=== PATIENT | male | born 1960 ===

== ENCOUNTER 2023-06-11 06:16 | Emergency (ER) | payer MEDICARE, OTHER ==
--- NOTE | 2023-06-11 06:50 | ED ---
Altered Mental Status HPI - General Chief Complaint: Altered Mental Status Stated Complaint: Confusion Time Seen by Provider: 06/11/23 06:48 Source: patient, EMS, RN notes reviewed Mode of arrival: EMS Limitations: no limitations - History of Present Illness Initial Comments: 62-year-old male presented to the ER via EMS from [facility] f or evaluation of altered mental status. EMS reports staff at [facility] report they found patient wandering the halls this morning and was confused. They state he has no known past medical history except brain tumors. Patient does not take medications regularly. He denies any current complaints including headache, double blurry vision, cough, congestion, chest pain, shortness of breath, abdominal pain, urinary complaints or peripheral edema. Patient is unaware what year it is and is unsure who the president is. Patient does know he is in a hospital in [place]. Upon speaking with family patient has a past medical history significant for Alzheimer's. Family states he frequently wanders and has difficulty sleeping. - Related Data Previous Rx's Medication Instructions Recorded Azithromycin [Zithromax Z Pack] 0 tab PO DIRECTED #6 tab 06/11/23 Allergies Allergy/AdvReac Type Severity Reaction Status Date / Time No Known Allergies Allergy Verified 06/11/23 06:35 Review of Systems ROS Statement: Those systems with pertinent positive or pertinent negative responses have been documented in the HPI. ROS Other: All systems not noted in ROS Statement are negative. General Exam Limitations: no limitations General appearance: alert, in no apparent distress Head exam: Present: atraumatic, normocephalic, normal inspection Eye exam: Present: normal appearance, PERRL, EOMI. Absent: scleral icterus, conjunctival injection, periorbital swelling Respiratory exam: Present: normal lung sounds bilaterally. Absent: respiratory distress, wheezes, rales, rhonchi, stridor Cardiovascular Exam: Present: regular rate, normal rhythm, normal heart sounds. Absent: systolic murmur, diastolic murmur, rubs, gallop, clicks GI/Abdominal exam: Present: soft, normal bowel sounds. Absent: distended, tenderness, guarding, rebound, rigid Neurological exam: Present: alert Psychiatric exam: Present: normal affect, normal mood Skin exam: Present: warm, dry, intact, normal color. Absent: rash Course Vital Signs 06/11/23 06/11/23 06/11/23 06:18 07:24 07:45 Temperature 98.0 F 97.9 F Pulse Rate 82 74 Respiratory 18 17 Rate Blood Pressure 155/98 145/94 O2 Sat by Pulse 99 100 Oximetry 06/11/23 06/11/23 08:05 09:03 Temperature 98.0 F Pulse Rate 75 84 Respiratory 16 17 Rate Blood Pressure 142/95 151/99 O2 Sat by Pulse 99 99 Oximetry Medical Decision Making - Medical Decision Making Was pt. sent in by a medical professional or institution (, PA, LAND ECONOMIST, urgent care, hospital, or fdc...) When possible be specific @ -No Did you speak to anyone other than the patient for history (EMS, parent, family, police, friend...)? What history was obtained from this source @ -Brother providing past medical history. Did you review nursing and triage notes (agree or disagree)? Why? @ -I reviewed and agree with nursing and triage notes Were old charts reviewed (outside hosp., previous admission, EMS record, old EKG, old radiological studies, urgent care reports/EKG's, fdc records)? Report findings @ -No old charts were reviewed Differential Diagnosis (chest pain, altered mental status, abdominal pain women, abdominal pain men, vaginal bleeding, weakness, fever, dyspnea, syncope, hea dache, dizziness, GI bleed, back pain, seizure, CVA, palpatations, mental health, musculoskeletal)? @ -Differential Altered Mental Status:Hypoglycemia, DKA, hypercapnia, ETOH, overdose, CO poisoning, trauma, myxedema coma, HTN encephalopathy, infection, encephalitis, psychosis, intercranial hemorrhage, hepatic encephalopathy, meningitis, CVA, this is not meant to be an all-inclusive list EKG interpreted by me (3pts min.). @ -As above X-rays interpreted by me (1pt min.). @ -Chest x-ray significant for superior and inferior right hilar opacities as well as left hilar opacities possible pneumonia. CT interpreted by me (1pt min.). @ -CT brain negative for acute intracranial process. Mild ventriculomegaly. U/S interpreted by me (1pt. min.). @ -None done What testing was considered but not performed or refused? (CT, X-rays, U/S, labs)? Why? @ -None What meds were considered but not given or refused? Why? @ -None Did you discuss the management of the patient with other professionals (professionals i.e. , PA, LAND ECONOMIST, lab, RT, psych nurse, social science research assistant, shank cutter, teacher, correction officer penitentiary, information systems security manager)? Give summary @ -No Was smoking cessation discussed for >3mins.? @ -No Was critical care preformed (if so, how long)? @ -No Were there social determinants of health that impacted care today? How? (Homelessness, low income, unemployed, alcoholism, drug addiction, transportation, low edu. Level, literacy, decrease access to med. care, fci, rehab)? @ -Patient currently residing at [facility] Was there de-escalation of care discussed even if they declined (Discuss DNR or withdrawal of care, Hospice)? DNR status @ -No What co-morbidities impacted this encounter? (DM, HTN, Smoking, COPD, CAD, Cancer, CVA, ARF, Chemo, Hep., AIDS, mental health diagnosis, sleep apnea, mo rbid obesity)? @ -Alzheimer's Was patient admitted / discharged? Hospital course, mention meds given and route, prescriptions, significant lab abnormalities, going to OR and other pertinent info. @ -Discharge. 62-year-old male presented to the ER with a chief complaint of altered mental status. Patient arrived via EMS from [facility]. History and physical exam completed. Vitals stable. Patient no signs of acute distress and nontoxic-appearing. No acute neurological findings on exam. Labs obtained unremarkable. CT brain negative for acute process. Chest x-ray concerning of pneumonia. Patient will be started on azithromycin. Results discussed with patient, all questions answered. Patient discharged in stable condition back to [facility]. Multiple community resources given. Return parameters discussed. Patient discharged stable condition with follow-up to PCP. Patient verbally expressed understanding and agreement with care plan. Case discussed with ED attending, Dr. Nichols. Undiagnosed new problem with uncertain prognosis? @ -No Drug Therapy requiring intensive monitoring for toxicity (Heparin, Nitro, Insulin, Cardizem)? @ -No Were any procedures done? @ -No Diagnosis/symptom? @ -Pneumonia/dementia Acute, or Chronic, or Acute on Chronic? @ -Acute Uncomplicated (without systemic symptoms) or Complicated (systemic symptoms)? @ -Uncomplicated Side effects of treatment? @ -No Exacerbation, Progression, or Severe Exacerbation? @ -No Poses a threat to life or bodily function? How? (Chest pain, USA, OR, pneumonia, PE, COPD, DKA, ARF, appy, cholecystitis, CVA, Diverticulitis, Homicidal, Suicidal, threat to staff... and all critical care pts) @ -Possibly, pneumonia - Lab Data Result diagrams: 06/11/23 07:40 06/11/23 06:53 Lab Results 06/11/23 06/11/23 06/11/23 Range/Units 06:53 06:53 07:40 WBC 6.7 (3.8-10.6) k/uL RBC 4.79 (4.30-5.90) m/uL Hgb 14.5 (13.0-17.5) gm/dL Hct 41.7 (39.0-53.0) % MCV 87.1 (80.0-100.0) fL MCH 30.2 (25.0-35.0) pg MCHC 34.7 (31.0-37.0) g/dL RDW 12.7 (11.5-15.5) % Plt Count 157 (150-450) k/uL MPV 7.4 Sodium 139 (137-145) mmol/L Potassium 4.2 (3.5-5.1) mmol/L Chloride 105 (98-107) mmol/L Carbon Dioxide 27 (22-30) mmol/L Anion Gap 7 mmol/L BUN 17 (9-20) mg/dL Creatinine 1.16 (0.66-1.25) mg/dL Est GFR (CKD-EPI)AfAm 79 (>60 ml/min/1.73 sqM) Est GFR (CKD-EPI)NonAf 68 (>60 ml/min/1.73 sqM) Glucose 92 (74-99) mg/dL Calcium 9.6 (8.4-10.2) mg/dL Total Bilirubin 0.6 (0.2-1.3) mg/dL AST 25 (17-59) U/L ALT 19 (4-49) U/L Alkaline Phosphatase 62 (38-126) U/L Total Protein 7.3 (6.3-8.2) g/dL Albumin 4.3 (3.5-5.0) g/dL Urine Color Urine Appearance (Clear) Urine pH (5.0-8.0) Ur Specific [place] (1.001-1.035) Urine Protein (Negative) Urine Glucose (UA) (Negative) Urine Ketones (Negative) Urine Blood (Negative) Urine Nitrite (Negative) Urine Bilirubin (Negative) Urine Urobilinogen (<2.0) mg/dL Ur Leukocyte Esterase (Negative) Urine Opiates Screen (NotDetected) Ur Oxycodone Screen (NotDetected) Urine Methadone Screen (NotDetected) Ur Barbiturates Screen (NotDetected) U Tricyclic Antidepress (NotDetected) Ur Phencyclidine Scrn (NotDetected) Ur Amphetamines Screen (NotDetected) U Methamphetamines Scrn (NotDetected) U Benzodiazepines Scrn (NotDetected) Urine Cocaine Screen (NotDetected) U Marijuana (THC) Screen (NotDetected) Serum Alcohol <10 mg/dL Influenza Type A (PCR) Not Detected (Not Detectd) Influenza Type B (PCR) Not Detected (Not Detectd) RSV (PCR) Not Detected (Not Detectd) SARS-CoV-2 (PCR) Not Detected (Not Detectd) 06/11/23 Range/Units 07:40 WBC (3.8-10.6) k/uL RBC (4.30-5.90) m/uL Hgb (13.0-17.5) gm/dL Hct (39.0-53.0) % MCV (80.0-100.0) fL MCH (25.0-35.0) pg MCHC (31.0-37.0) g/dL RDW (11.5-15.5) % Plt Count (150-450) k/uL MPV Sodium (137-145) mmol/L Potassium (3.5-5.1) mmol/L Chloride (98-107) mmol/L Carbon Dioxide (22-30) mmol/L Anion Gap mmol/L BUN (9-20) mg/dL Creatinine (0.66-1.25) mg/dL Est GFR (CKD-EPI)AfAm (>60 ml/min/1.73 sqM) Est GFR (CKD-EPI)NonAf (>60 ml/min/1.73 sqM) Glucose (74-99) mg/dL Calcium (8.4-10.2) mg/dL Total Bilirubin (0.2-1.3) mg/dL AST (17-59) U/L ALT (4-49) U/L Alkaline Phosphatase (38-126) U/L Total Protein (6.3-8.2) g/dL Albumin (3.5-5.0) g/dL Urine Color Colorless Urine Appearance Clear (Clear) Urine pH 7.0 (5.0-8.0) Ur Specific [place] 1.010 (1.001-1.035) Urine Protein Negative (Negative) Urine Glucose (UA) Negative (Negative) Urine Ketones Negative (Negative) Urine Blood Negative (Negative) Urine Nitrite Negative (Negative) Urine Bilirubin Negative (Negative) Urine Urobilinogen <2.0 (<2.0) mg/dL Ur Leukocyte Esterase Negative (Negative) Urine Opiates Screen Not Detected (NotDetected) Ur Oxycodone Screen Not Detected (NotDetected) Urine Methadone Screen Not Detected (NotDetected) Ur Barbiturates Screen Not Detected (NotDetected) U Tricyclic Antidepress Not Detected (NotDetected) Ur Phencyclidine Scrn Not Detected (NotDetected) Ur Amphetamines Screen Not Detected (NotDetected) U Methamphetamines Scrn Not Detected (NotDetected) U Benzodiazepines Scrn Not Detected (NotDetected) Urine Cocaine Screen Not Detected (NotDetected) U Marijuana (THC) Screen Not Detected (NotDetected) Serum Alcohol mg/dL Influenza Type A (PCR) (Not Detectd) Influenza Type B (PCR) (Not Detectd) RSV (PCR) (Not Detectd) SARS-CoV-2 (PCR) (Not Detectd) - EKG Data -: EKG Interpreted by Md EKG Comments: EKG taken at 6: 21 showing a sinus rhythm with no acute ST segment or T wave abnormalities. Ventricular rate 81, MD interval 191, QRS duration 97, QT/QTc 360/397. - Radiology Data Radiology results: report reviewed, image reviewed Disposition Clinical Impression: Pneumonia, Dementia Disposition: HOME SELF-CARE Condition: Stable Instructions (If sedation given, give patient instructions): Pneumonia (ED) Additional Instructions: Follow-up with PCP. Complete full course of antibiotics. Return to the ER for any new or worsening symptoms. Prescriptions: Azithromycin [Zithromax Z Pack] 0 tab PO DIRECTED #6 tab Is patient prescribed a controlled substance at d/c from ED?: No Referrals: None,Stated [Primary Care Provider] - 1-2 days Forms: Personal Silver Wrapper, Community Resources, Assisted Living Facilities, Area PCPs Time of Disposition: 09:20
--- NOTE | 2023-06-11 07:51 | CT ---
EXAMINATION TYPE: CT brain wo con DATE OF EXAM: 06/11/2023 COMPARISON: None HISTORY: 62-year-old male confusion, ams TECHNIQUE: Examination was done in axial plane without intravenous contrast. Coronal and sagittal r econstructions performed. CT DLP: 1095.4 mGycm Automated exposure control for dose reduction was used. FINDINGS: There is no evidence of acute intracranial hemorrhage, acute ischemic changes, mass, mass-effect, or extra-axial fluid collection. There is no effacement of cerebral sulci or basal subarachnoid cister ns. Mild ventriculomegaly; Myron's ratio calculated at 0.34. There is no midline shift. Collins-white ma tter distinction is preserved. Paranasal sinuses and mastoid air cells are well pneumatized. Scattered trace thickening of mucosa. O rbits and globes are intact. IMPRESSION: No acute intracranial abnormality seen. Mild ventriculomegaly may relate to central cerebral atrophy. Correlate to exclude a component of NPH.
--- NOTE | 2023-06-11 07:54 | XR ---
EXAMINATION TYPE: XR chest 2V DATE OF EXAM: 06/11/2023 COMPARISON: None HISTORY: 62-year-old male, confusion, altered mental status TECHNIQUE: AP and lateral views FINDINGS: Heart normal size. Dextroscoliosis lower thoracic spine. Mild hyperinflation. Focal right suprahilar opacity, right infrahilar nodularity and left perihilar opacity. Otherwise, no consolidation or pleur al effusion. IMPRESSION: 1. Superior and inferior right hilar opacities as well as left hilar opacity. Additional left perihi lar opacity as well. Densities may reflect prominent summation artifact, underlying pulmonary arteri al hypertension, abnormal lymphadenopathy, or abnormal pulmonary nodules. Further evaluation as clini eddie indicated. 2. COPD. Otherwise, no other acute process seen.
[2023-06-11 08:22] LABS: ALT 19 U/L (4-49); AST 25 U/L (17-59); African American GFR (CKD) 79 (>60 ml/min/1.73 sqM); Albumin 4.3 g/dL (3.5-5.0); Alcohol <10 mg/dL; Alkaline Phosphatase 62 U/L (38-126); Anion Gap 7 mmol/L; Blood Urea Nitrogen 17 mg/dL (9-20); Calcium 9.6 mg/dL (8.4-10.2); Carbon Dioxide 27 mmol/L (22-30); Chloride 105 mmol/L (98-107); Glucose 92 mg/dL (74-99); Non-African American GFR(CKD) 68 (>60 ml/min/1.73 sqM); Potassium 4.2 mmol/L (3.5-5.1); Sodium 139 mmol/L (137-145); Total Bilirubin 0.6 mg/dL (0.2-1.3); Total Protein 7.3 g/dL (6.3-8.2)
[2023-06-11 08:25] LABS: Appearance,Urine Clear (Clear); Bilirubin,Urine Negative (Negative); Blood,Urine Negative (Negative); Color,Urine Colorless; Glucose,Urine (UA) Negative (Negative); Ketones,Urine Negative (Negative); Leukocyte Esterase,Urine Negative (Negative); Nitrite,Urine Negative (Negative); Protein,Urine Negative (Negative); Urobilinogen,Urine <2.0 mg/dL (<2.0)
[2023-06-11 08:42] LABS: HCT 41.7 % (39.0-53.0); HGB 14.5 gm/dL (13.0-17.5); MCH 30.2 pg (25.0-35.0); MCHC 34.7 g/dL (31.0-37.0); MCV 87.1 fL (80.0-100.0); Mean Platelet Volume 7.4; Platelet Count 157 k/uL (150-450); RBC 4.79 m/uL (4.30-5.90); RDW 12.7 % (11.5-15.5); WBC 6.7 k/uL (3.8-10.6)
[2023-06-11 09:04] VITALS: TEMP 98
[2023-06-11 09:05] VITALS: BP 151/99; PULSE 84; RESP 17
[2023-06-11 09:07] LABS: Amphetamine Screen,Urine Not Detected (NotDetected); Barbiturate Screen,Urine Not Detected (NotDetected); Benzodiazepines Screen,Urine Not Detected (NotDetected); Cocaine Screen,Urine Not Detected (NotDetected); Methadone Screen, Urine Not Detected (NotDetected); Opiate Screen,Urine Not Detected (NotDetected); Oxycodone Screen, Urine Not Detected (NotDetected); Phencyclidine Screen,Urine Not Detected (NotDetected); Tricyclic Antidepressant,Urine Not Detected (NotDetected); Urn Cannabinoid Scrn Not Detected (NotDetected)
[2023-06-11 09:45] LABS: Basophils # (M) 0.07 k/uL (0-0.2); Lymphocytes # (M) 1.81 k/uL (1.0-4.8); Monocytes # (M) 0.47 k/uL (0-1.0); Neutrophils # (M) 4.36 k/uL (1.3-7.7); Neutrophils % (M) 65 %; Nucleated Red Blood Cells 0 /100 WBC (0-0); Total Cells Counted 100
[2023-06-11 09:46] LABS: RBC Morphology Normal
== END 2023-06-11 09:58 | disposition home or self-care (01) ==
LOC: EC 06:16
DX: J18.9 Pneumonia, unspecified organism (principal); G30.9 Alzheimer's disease, unspecified; F02.818 Dementia in other diseases classified elsewhere, unspecified severity, with other behavioral disturbance; G93.89 Other specified disorders of brain; Z11.52 Encounter for screening for COVID-19
CPT/HCPCS: 36415; 93005; 80053; 85025; 81003; 80306; 87636; 71046; 70450; 99285; G0480; 80320

== ENCOUNTER 2024-04-26 09:39 | Observation (INO) | payer OTHER, MEDICARE ==
[2024-04-26] MEDS: SODIUM CHLORIDE 0.9% 1,000 ML IV STA ×2 (10:12→16:43)
[2024-04-26 10:14] LABS: Basophils % (A) 0 %; Eosinophils # (A) 0.1 k/uL (0-0.7); Eosinophils % (A) 1 %; HGB 12.6 gm/dL (13.0-17.5); Lymphocytes # (A) 0.7 k/uL (1.0-4.8); Lymphocytes % (A) 6 %; MCH 27.7 pg (25.0-35.0); MCHC 32.3 g/dL (31.0-37.0); MCV 85.7 fL (80.0-100.0); Mean Platelet Volume 6.8; Monocytes # (A) 0.6 k/uL (0-1.0); Monocytes % (A) 5 %; Neutrophils % (A) 87 %; Platelet Count 192 k/uL (150-450); RBC 4.54 m/uL (4.30-5.90); RDW 13.2 % (11.5-15.5); WBC 11.5 k/uL (3.8-10.6)
--- NOTE | 2024-04-26 10:14 | ED ---
General Adult HPI - General Chief complaint: Syncope Stated complaint: Syncope Time Seen by Provider: 04/26/24 09:39 Source: patient, EMS, RN notes reviewed, old records reviewed Mode of arrival: EMS Limitations: no limitations - History of Present Illness Initial comments: Patient is a 63-year-old male with past medical history markable for dementia who presents emergency department from his assisted living facility for syncope episode. Patient apparently was standing at his sink and suffered a syncopal episode. Presented from [facility] living. Was a fall from standing. Not on blood thinners. Unknown if hit his head. Baseline is ANO x 2-3 and patient seems to be at baseline. 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 I did discuss with patient's brother who states that he was recently started on a new medication for his combativeness which could be contributory to his current symptoms. Patient denies any acute complaints. Presents for further evaluation at this time. Denies chest pain or abdominal pain. Denies nausea or vomiting. Denies any back pain. No obvious injuries. Moving all 4 extremities. Patient overall is a poor historian. - Related Data Home Medications Medication Instructions Recorded Confirmed Sertraline HCl [Zoloft] 50 mg PO HS@199904/26/24 04/26/24 Allergies Allergy/AdvReac Type Severity Reaction Status Date / Time No Known Allergies Allergy Verified 04/26/24 13:06 Review of Systems ROS Statement: Those systems with pertinent positive or pertinent negative responses have been documented in the HPI. Review of Systems: CONST: Denies fever EYES: Denies blurry vision ENT: Denies nasal congestion C/V: Denies Chest pain RESP: Denies shortness of breath GI: Denies abdominal pain : Denies dysuria SKIN: Denies rash. MSK: Denies joint pain. NEURO: Denies headache ROS Other: All systems not noted in ROS Statement are negative. Past Medical History Past Medical History: Dementia, Hypertension History of Any Multi-Drug Resistant Organisms: None Reported Past Surgical History: No Surgical Hx Reported Smoking Status: Never smoker Past Alcohol Use History: None Reported Past Drug Use History: None Reported General Exam - General Exam Comments Initial Comments: General: Appears in no acute distress. HEAD: Normal with no signs of head trauma. Negative Maurice sign. Negative raccoon eyes. EYES: PERRLA, EOMI, conjunctiva normal, no discharge. Pupils are 3 mm and equal bilaterally. ENT: Hearing grossly intact, normal oropharynx. RESPIRATORY: Clear breath sounds bilaterally. No wheezes, rales, or rhonchi. C/V: Regular rate and rhythm. S1 and S2 auscultated, no edema, peripheral pulses 2+ and intact throughout ABD: Abd is soft, nontender, nondistended EXT: Normal range of motion, no obvious deformity. No spinal tenderness to palpation. Pelvis is stable. SKIN: No rashes or lesions observed on exposed skin. NEURO: Alert and oriented x 2-3. No focal deficits. GCS of 15. Limitations: no limitations Course Vital Signs 04/26/24 09:41 Temperature 98 F Pulse Rate 81 Respiratory 18 Rate Blood Pressure 98/73 O2 Sat by Pulse 100 Oximetry Medical Decision Making - Medical Decision Making Was pt. sent in by a medical professional or institution (, PA, INSURANCE REPRESENTATIVE, urgent care, hospital, or fpc...) When possible be specific @ -Presents from [facility] for further evaluation Did you speak to anyone other than the patient for history (EMS, parent, family, police, friend...)? What history was obtained from this source @ -Spoke with patient's brother who provided patient's history. Did you review nursing and triage notes (agree or disagree)? Why? @ -I reviewed and agree with nursing and triage notes Were old charts reviewed (outside hosp., previous admission, EMS record, old EKG, old radiological studies, urgent care reports/EKG's, fpc records)? Report findings @ -No old charts were reviewed Differential Diagnosis (chest pain, altered mental status, abdominal pain women, abdominal pain men, vaginal bleeding, weakness, fever, dyspnea, syncope, headache, dizziness, GI bleed, back pain, seizure, CVA, palpatations, mental health, musculoskeletal)? @ -Differential Syncope: Valvular disease, hypertrophic cardiomyopathy, pulmonary embolism, tamponade, tachycardia, bradycardia, [place], hypovolemia, hemorrhage, dissection, anemia, intracranial hemorrhage, seizure, hypoglycemia, carbon monoxide poisoning, this is not meant to be an all-inclusive list. EKG interpreted by me (3pts min.). @ -As above X-rays interpreted by me (1pt min.). @ -Chest x-ray reveals possible hilar masses or adenopathy with possible right sided lung mass. CT interpreted by me (1pt min.). @ -CT brain reveals possible cerebellar mass versus vascular injury. Radiology concern for malignancy and recommend MRI. U/S interpreted by me (1pt. min.). @ -None done What testing was considered but not performed or refused? (CT, X-rays, U/S, labs)? Why? @ -None What meds were considered but not given or refused? Why? @ -None Did you discuss the management of the patient with other professionals (professionals i.e. DrSis, PA, INSURANCE REPRESENTATIVE, lab, RT, psych nurse, social work supervisor, broke beater operator, teacher, tactical/mobile watch officer, oil field caser)? Give summary @ -Discussed with Dr. Bernal of neurology who agreed with plan and asked that I order an EEG as well as MRI. Spoke with admitting provider, Dr. Tam who accepted the admission. Was smoking cessation discussed for >3mins.? @ -No Was critical care preformed (if so, how long)? @ -No Were there social determinants of health that impacted care today? How? (Homelessness, low income, unemployed, alcoholism, drug addiction, transportation, low edu. Level, literacy, decrease access to med. care, nursing home, rehab)? @ -No Was there de-escalation of care discussed even if they declined (Discuss DNR or withdrawal of care, Hospice)? DNR status @ -No What co-morbidities impacted this encounter? (DM, HTN, Smoking, COPD, CAD, Cancer, CVA, ARF, Chemo, Hep., AIDS, mental health diagnosis, sleep apnea, morbid obesity)? @ -Dementia Was patient admitted / discharged? Hospital course, mention meds given and route, prescriptions, significant lab abnormalities, going to OR and other pertinent info. @ -Based on patient's presentation and physical exam, presents to the emergency department for syncopal episode that is assisted living facility. Patient currently has no acute complaints. He has dementia. Is mostly cooperative. Discussed with patient's brother and they in agreement with plan for workup. Patient will be given IV fluids. Patient's laboratory studies remarkable for mild leukocytosis of 11. Slightly increased creatinine of 1.3. Viral swabs negative. Patient's imaging concerning for possible malignancy in the lung as well as malignancy in the brain. No obvious traumatic injury. After the patient as well as his brother who is medical decision-maker. His brother did confirm that the patient is DNR. We discussed findings. Patient will be admitted at this time. They were in agreement this plan. Neurology will be consulted for the head CT findings and Dr. Bernal recommended an EEG and MRI. I spoke with the admitting provider, Dr. Tam who accepted the admission. Undiagnosed new problem with uncertain prognosis? @ -No Drug Therapy requiring intensive monitoring for toxicity (Heparin, Nitro, Insulin, Cardizem)? @ -No Were any procedures done? @ -No Diagnosis/symptom? @ -Syncope, fall, dementia, possible brain malignancy, possible lung malignancy. All in the setting of Alzheimer's dementia. Acute, or Chronic, or Acute on Chronic? @ -Acute Uncomplicated (without systemic symptoms) or Complicated (systemic symptoms)? @ -complicated Side effects of treatment? @ -None Exacerbation, Progression, or Severe Exacerbation] @ -No Poses a threat to life or bodily function? @ -Potentially, yes - Lab Data Result diagrams: 04/26/24 09:41 04/26/24 09:41 Lab Results 04/26/24 04/26/24 04/26/24 Range/Units 09:41 09:41 09:41 WBC 11.5 H (3.8-10.6) k/uL RBC 4.54 (4.30-5.90) m/uL Hgb 12.6 L (13.0-17.5) gm/dL Hct 39.0 (39.0-53.0) % MCV 85.7 (80.0-100.0) fL MCH 27.7 (25.0-35.0) pg MCHC 32.3 (31.0-37.0) g/dL RDW 13.2 (11.5-15.5) % Plt Count 192 (150-450) k/uL MPV 6.8 Neutrophils % 87 % Lymphocytes % 6 % Monocytes % 5 % Eosinophils % 1 % Basophils % 0 % Neutrophils # 10.0 H (1.3-7.7) k/uL Lymphocytes # 0.7 L (1.0-4.8) k/uL Monocytes # 0.6 (0-1.0) k/uL Eosinophils # 0.1 (0-0.7) k/uL Basophils # 0.0 (0-0.2) k/uL PT 12.0 (10.0-12.5) sec INR 1.1 (<1.2) APTT 23.7 (22.0-30.0) sec Sodium 135 L (137-145) mmol/L Potassium 5.0 (3.5-5.1) mmol/L Chloride 99 (98-107) mmol/L Carbon Dioxide 30 (22-30) mmol/L Anion Gap 6 mmol/L BUN 20 (9-20) mg/dL Creatinine 1.36 H (0.66-1.25) mg/dL Est GFR (CKD-EPI)AfAm 64 (>60 ml/min/1.73 sqM) Est GFR (CKD-EPI)NonAf 55 (>60 ml/min/1.73 sqM) Glucose 208 H (74-99) mg/dL Calcium 9.7 (8.4-10.2) mg/dL Magnesium 2.0 (1.6-2.3) mg/dL Total Bilirubin 0.8 (0.2-1.3) mg/dL AST 28 (17-59) U/L ALT 17 (4-49) U/L Alkaline Phosphatase 69 (38-126) U/L Total Protein 6.8 (6.3-8.2) g/dL Albumin 3.9 (3.5-5.0) g/dL Influenza Type A (PCR) (Not Detectd) Influenza Type B (PCR) (Not Detectd) RSV (PCR) (Not Detectd) SARS-CoV-2 (PCR) (Not Detectd) 04/26/24 Range/Units 09:41 WBC (3.8-10.6) k/uL RBC (4.30-5.90) m/uL Hgb (13.0-17.5) gm/dL Hct (39.0-53.0) % MCV (80.0-100.0) fL MCH (25.0-35.0) pg MCHC (31.0-37.0) g/dL RDW (11.5-15.5) % Plt Count (150-450) k/uL MPV Neutrophils % % Lymphocytes % % Monocytes % % Eosinophils % % Basophils % % Neutrophils # (1.3-7.7) k/uL Lymphocytes # (1.0-4.8) k/uL Monocytes # (0-1.0) k/uL Eosinophils # (0-0.7) k/uL Basophils # (0-0.2) k/uL PT (10.0-12.5) sec INR (<1.2) APTT (22.0-30.0) sec Sodium (137-145) mmol/L Potassium (3.5-5.1) mmol/L Chloride (98-107) mmol/L Carbon Dioxide (22-30) mmol/L Anion Gap mmol/L BUN (9-20) mg/dL Creatinine (0.66-1.25) mg/dL Est GFR (CKD-EPI)AfAm (>60 ml/min/1.73 sqM) Est GFR (CKD-EPI)NonAf (>60 ml/min/1.73 sqM) Glucose (74-99) mg/dL Calcium (8.4-10.2) mg/dL Magnesium (1.6-2.3) mg/dL Total Bilirubin (0.2-1.3) mg/dL AST (17-59) U/L ALT (4-49) U/L Alkaline Phosphatase (38-126) U/L Total Protein (6.3-8.2) g/dL Albumin (3.5-5.0) g/dL Influenza Type A (PCR) Not Detected (Not Detectd) Influenza Type B (PCR) Not Detected (Not Detectd) RSV (PCR) Not Detected (Not Detectd) SARS-CoV-2 (PCR) Not Detected (Not Detectd) - EKG Data -: EKG Interpreted by Me EKG Comments: 12-lead Electrocardiogram Interpretation Note EKG was reviewed and interpreted by myself. 12-lead ECG performed at 0950 is interpreted by me as revealing normal sinus rhythm at a rate of 78 beats per minute. Veyo is normal. AR interval is 168 ms, QRS duration is 91 ms, QTc is 398 ms.. There were no ST or T wave abnormalities to suggest myocardial ischemia or injury. R wave progression across the precordium was satisfactory. By my interpretation this EKG is non-diagnostic for acute ischemia. Disposition Clinical Impression: Syncope, Brain mass, Debility, Alzheimer dementia Narrative: possible lung malignancy Disposition: ADMITTED IP TO THIS HOSP Condition: Stable Time of Disposition: 11:25
[2024-04-26 10:26] LABS: INR 1.1 (<1.2); Partial Thromboplastin Time 23.7 sec (22.0-30.0)
[2024-04-26 10:29] LABS: ALT 17 U/L (4-49); AST 28 U/L (17-59); African American GFR (CKD) 64 (>60 ml/min/1.73 sqM); Albumin 3.9 g/dL (3.5-5.0); Alkaline Phosphatase 69 U/L (38-126); Anion Gap 6 mmol/L; Blood Urea Nitrogen 20 mg/dL (9-20); Calcium 9.7 mg/dL (8.4-10.2); Carbon Dioxide 30 mmol/L (22-30); Chloride 99 mmol/L (98-107); Glucose 208 mg/dL (74-99); Non-African American GFR(CKD) 55 (>60 ml/min/1.73 sqM); Sodium 135 mmol/L (137-145); Total Bilirubin 0.8 mg/dL (0.2-1.3); Total Protein 6.8 g/dL (6.3-8.2)
--- NOTE | 2024-04-26 10:39 | XR ---
EXAMINATION TYPE: XR chest 2V DATE OF EXAM: 04/26/2024 CLINICAL INDICATION: Male, 63 years old with history of syncope, TECHNIQUE: Frontal and lateral views of the chest are obtained. COMPARISON: Chest x-ray June 11, 2023 FINDINGS: The cardiac silhouette size is stable and within normal limits. More prominent rounded full ness in the bilateral hilar regions and medial right lung base. No pleural effusion or pneumothorax s een bilaterally. The osseous structures are intact. IMPRESSION: Possible new hilar masses and/or adenopathy and medial right lower lung mass. Advise CT f ollow-up to further evaluate. [facility], , 04/26/2024 10:36 AM
--- NOTE | 2024-04-26 10:47 | CT ---
EXAMINATION TYPE: CT brain wo con DATE OF EXAM: 04/26/2024 10:26 AM COMPARISON: 06/11/2023. CLINICAL INDICATION: Male, 63 years old with history of syncope, syncope TECHNIQUE: Brain: Axial CT images of the brain were obtained with coronal and sagittal reformats created and rev iewed. Contrast used: None. Oral contrast used: None. CT DLP: 1157.1 mGycm, Automated exposure control for dose reduction was used. FINDINGS: Brain: Extra-axial spaces: No abnormal extra-axial fluid collections. Ventricular system: Stable dilation of the ventricular system. Cerebral parenchyma: No acute intraparenchymal hemorrhage or mass effect. The merida-white junction is well differentiated. Cerebellum: New from 06/11/2023 left cerebral hemisphere cystic lesion which is fluid density at 9 Maximino nsfield units measuring 26 x 24 x 26 with some vasogenic edema. Mass effect: No evidence of midline shift. Intracranial vasculature: unremarkable Soft tissues: Normal. Calvarium/osseous structures: No depressed skull fracture. Paranasal sinuses and mastoid air cells: Mild scattered paranasal sinus disease. Visualized orbits: Orbital contents are intact. IMPRESSION: 1. New left cerebellar hemisphere fluid attenuating region from 06/11/2023. Further evaluation with M RI brain recommended with IV contrast, unclear if this represents a mass or vascular injury. Correlat e for history of malignancy. 2. Stable ventricular system dilation. [facility], , 04/26/2024 10:45 AM
[2024-04-26 10:49] LABS: Influenza A Not Detected (Not Detectd); Influenza B Not Detected (Not Detectd); RSV Not Detected (Not Detectd)
[2024-04-26] MEDS ORDERED: NALOXONE 0.4 MG/ML 1 ML VIAL IV PRN (11:22)
[2024-04-26] MEDS ORDERED: ONDANSETRON 4 MG/2 ML VIAL IVP PRN (11:22)
--- NOTE | 2024-04-26 12:47 | P.HPIM ---
History of Present Illness 63-year-old male was sent in here because of a syncopal episode patient lives in assisted living. Patient is found to have elevated serum creatinine 1.36 mild hyponatremia leukocytosis and low blood pressure patient does not take any medications at home patient appears to have dementia of Alzheimer's type and baseline is alert oriented x 2-3 patient does not answer any questions appropriately apparently patient was started on new medications for combativeness which they believe is contributing to her current current symptoms. Patient had a CT of the head which showed hypoattenuation in the cerebellar area concerning for fluid or mass because of which neurology was consulted and patient is undergoing brain MRI for that. REVIEW OF SYSTEMS: All other systems are negative except those mentioned in the HPI PHYSICAL EXAMINATION: GENERAL: The patient is alert and oriented x2, not in any acute distress. Well developed, well nourished. HEENT: Pupils are round and equally reacting to light. EOMI. No scleral icterus. No conjunctival pallor. Normocephalic, atraumatic. No pharyngeal erythema. No thyromegaly. CARDIOVASCULAR: S1 and S2 present. No murmurs, rubs, or gallops. PULMONARY: Chest is clear to auscultation, no wheezing or crackles. ABDOMEN: Soft, nontender, nondistended, normoactive bowel sounds. No palpable organomegaly. MUSCULOSKELETAL: No joint swelling or deformity. EXTREMITIES: No cyanosis, clubbing, or pedal edema. NEUROLOGICAL: Gross neurological examination did not reveal any focal deficits. Significant memory deficits SKIN: No rashes. Assessment and plan -Syncope probably secondary to dehydration from poor p.o. intake patient was started on IV fluids which we will continue will obtain orthostatic vitals. Will also obtain echocardiogram to rule out any aortic stenosis -Elevated blood sugars will obtain hemoglobin A1c -Leukocytosis reactive in nature -Hypoattenuation in the cerebellar area for which patient will undergo MRI neurology evaluated the patient -Dementia possibly dementia of Alzheimer's type expected to have some agitation episodes will use Seroquel for that avoid benzodiazepines, barbiturates, anticholinergic medications, opiates. DVT prophylaxis: Subcutaneous heparin Past Medical History Past Medical History: Dementia, Hypertension History of Any Multi-Drug Resistant Organisms: None Reported Past Surgical History: No Surgical Hx Reported Smoking Status: Never smoker Past Alcohol Use History: None Reported Past Drug Use History: None Reported Medications and Allergies Home Medications Medication Instructions Recorded Confirmed Type Azithromycin [Zithromax Z Pack] 0 tab PO DIRECTED #6 tab 06/11/23 Rx Azithromycin [Zithromax] 500 mg PO DAILY #5 tab 06/11/23 Rx Allergies Allergy/AdvReac Type Severity Reaction Status Date / Time No Known Allergies Allergy Verified 04/26/24 09:54 Physical Exam Vitals: Vital Signs Temp Pulse Resp BP Pulse Ox 04/26/24 09:41 98 F 81 18 98/73 100 Intake and Output 04/25/24 04/26/24 04/26/24 22:59 06:59 14:59 Other: Weight 74.843 kg Results CBC & Chem 7: 04/26/24 09:41 04/26/24 09:41 Labs: Abnormal Lab Results - Last 24 Hours (Table) 04/26/24 04/26/24 Range/Units 09:41 09:41 WBC 11.5 H (3.8-10.6) k/uL Hgb 12.6 L (13.0-17.5) gm/dL Neutrophils # 10.0 H (1.3-7.7) k/uL Lymphocytes # 0.7 L (1.0-4.8) k/uL Sodium 135 L (137-145) mmol/L Creatinine 1.36 H (0.66-1.25) mg/dL Glucose 208 H (74-99) mg/dL
[2024-04-26] MEDS: QUEtiapine 25 MG TAB PO PRN (14:32)
[2024-04-26] MEDS ORDERED: LORazepam 2 MG/ML INJ IV PRN (15:02)
--- NOTE | 2024-04-26 15:19 | P.CNNES ---
History of Present Illness Consult date: 04/26/24 Requesting physician: Robel Dobson Reason for Consult: ?brain mass History of Present Illness: This is a 63-year-old gentleman with a history of dementia that is progressive over the last 4 to 5 years who presents to the emergency department because of a syncopal spell. Patient brother is at bedside who provide the history. It seems that the patient was at his assisted living facility and it seems that he had a fall episode and according to his brothers the episode happened between around 8 to 9 AM. He does not recall having any warning signs. He is unable to provide much history. According to ED note it seems that the patient fell from standing and unknown if he hit his head. No history of seizure in the past. Seems at baseline he is oriented 2-3. Patient is not on any blood thinners. Seems the patient has progressive dementia over the last 4 to 5 years but he never was evaluated by a neurologist as an outpatient for an official diagnosis and never had the workup. Some of the workup during this hospital visit consisted of: I reviewed the lab workup. Creatinine is 1.36, sodium is 135, serum glucose is 2 8, calcium and magnesium as well as AST ALT are within the normal limits. CT of the head is reported as new left cerebellar hemisphere fluid attenuation region from 06/11/2023. Further evaluation with MRI recommended with IV contrast. Unclear if this represents a mass or vascular injury. I personally reviewed the CT and I agree there is no acute process. I do agree that the darian ent has questionable old vascular versus mass. There is no vasogenic edema noted. Review of Systems Limited. Past Medical History Past Medical History: Dementia, Hypertension History of Any Multi-Drug Resistant Organisms: None Reported Past Surgical History: No Surgical Hx Reported Smoking Status: Never smoker Past Alcohol Use History: None Reported Past Drug Use History: None Reported Medications and Allergies Home Medications Medication Instructions Recorded Confirmed Type Sertraline HCl [Zoloft] 50 mg PO HS@199904/26/24 04/26/24 History Allergies Allergy/AdvReac Type Severity Reaction Status Date / Time No Known Allergies Allergy Verified 04/26/24 13:06 Physical Examination - Vital Signs Vital Signs: Vital Signs Temp Pulse Resp BP Pulse Ox 04/26/24 09:41 98 F 81 18 98/73 100 Intake and Output 04/26/24 04/26/24 04/26/24 06:59 14:59 22:59 Other: Weight 74.843 kg General: Lying in bed and does not appear in acute distress. Neuro: Very limited because of cooperation. Patient is resistant on cooperating on examination. He is oriented to self. Language is very limited Pupils are round about 3 mm and reactive to light. No facial weakness. No dysarthria from limited language. Tongue is midline and move [id number] without difficulty and there is no tongue bites. Motor is able to lift up bilateral upper and lower extremity above gravity and appears equally. Normal tone and bulk Results - Laboratory Findings CBC and BMP: 04/26/24 09:41 04/26/24 09:41 Abnormal Lab Findings: Abnormal Labs 04/26/24 04/26/24 09:41 09:41 WBC 11.5 H Hgb 12.6 L Neutrophils # 10.0 H Lymphocytes # 0.7 L Sodium 135 L Creatinine 1.36 H Glucose 208 H Assessment and Plan Assessment: This is a 63-year-old gentleman with history of progressive dementia over the last for 5 years who presented from his assisted living facility for a fall in the morning. Fact that he had a syncopal spell. CT of the head shows concern for a vascular insult over the left cerebellar that seems old versus mass Syncopal spell unknown exact etiology: Unsure if due cerebellar lesion leading to seizure. New left cerebellar compared to the 05/2023 imaging rule out mass versus an old insult Underlying history of dementia that is progressive over the last for 5 years Plan: I spoke with the ED physician and recommended routine EEG as well as MRI of the brain with and without Will avoid any antiplatelet or or antiseizure medication until further evaluation is performed. The patient does not have any underlying seizure then recommend subacute 50 mg twice daily since it will help both with the mood as well as has antiseizure benefit. Keppra will avoid because of has mood side effects. Patient does have brain mass then recommend Oncology consultation. Will defer the rest of the medical management the primary other specialist The plan is discussed with patient's brothers who are at bedside and ED physician. Thank you for the consultation. Time with Patient: Greater than 30
--- NOTE | 2024-04-26 15:53 | MR ---
EXAMINATION TYPE: MR brain wo/w con DATE OF EXAM: 04/26/2024 3:44 PM COMPARISON: CT 04/26/2024, 427.4. CLINICAL INDICATION: Male, 63 years old with history of possible brain mass; TECHNIQUE: Multi planar, multi sequence imaging was performed through the brain including: T1, T2, In version recovery, susceptibility weighted imaging and gradient echo imaging and Diffusion weighted im aging. The patient was then given intravenous contrast and multi planar, T1 fat-saturation images wer e obtained. IV Contrast: 7 mL Gadobutrol FINDINGS: Cystic lesion in the left cerebellar hemisphere measuring 24 x 21 x 29 mm with surrounding vasogenic edema demonstrates some posterior enhancement, enhancement measuring at least 5 mm x 22 mm. The merida-white junctions, ventricular system, basal cisterns appear unremarkable. Diffusion-weighted imaging shows no evidence of restricted diffusion to suggest acute/subacute infarct. Intracranial ar terial flow voids are maintained. Midline structures show no abnormality. Scattered foci of high T2 s ignal intensity are seen within the periventricular white matter. The susceptibility weighted images do not reveal any evidence for micro-hemorrhage. The bone marrow signal is within normal limits. Paranasal sinuses and mastoid air cells: No significant paranasal sinus disease. Visualized orbits: Orbital contents are intact. IMPRESSION: 1. Cystic mass in the left cerebellar hemisphere with posterior peripheral enhancement along the angeli in and is new from CT 06/11/2023 and concerning for metastatic disease. 2. No evidence of acute/subacute infarct. 3. Nonspecific white matter changes, likely related to small vessel ischemic disease. [facility], , 04/26/2024 3:51 PM
[2024-04-26] MEDS: HEPARIN SODIUM,PORCINE 5,000 UNIT/ML 1 ML VIAL SQ SCH (21:20)
--- NOTE | 2024-04-26 22:30 | EEG ---
ELECTROENCEPHALOGRAM REPORT CLINICAL HISTORY: This is a 63-year-old gentleman with history of dementia, who had a syncopal episode. The video EEG is obtained to evaluate for seizure epileptiform activity. RELEVANT MEDICATION: The patient is not on any antiseizure medication. EEG TYPE: This is a routine 21-channel EEG with video using the 10/20 electrode placement system. DESCRIPTION: Wakefulness is only obtained. During awake state, the background consists of low-to- moderate voltage of 5 to 5.5 hertz activity. There was no physiological stage 2 sleep architecture. There is no focal slowing. Interictal and ictal is none. ACTIVATION PROCEDURE: Photic stimulation did not evoke a posterior driving response. There is no abnormality during the photic stimulation. Hyperventilation is not performed. CLINICAL INTERPRETATION: This is an abnormal routine EEG. The background slowing is suggestive of moderate encephalopathy. Otherwise, there is no focal slowing, epileptiform discharge, or seizure on the EEG. Lack of epileptiform discharge does not rule out underlying epilepsy. Clinical correlation is recommended. [id number] / IJN: [id number] /
[2024-04-27] MEDS: ACETAMINOPHEN TAB 325 MG TAB PO PRN (06:14)
[2024-04-27 08:11] LABS: ALT 13 U/L (10-49); AST 25 U/L (14-35); Albumin 3.5 g/dL (3.8-4.9); Alkaline Phosphatase 65 U/L (41-126); BUN/Creat Ratio 12.38 Ratio (12.00-20.00); Blood Urea Nitrogen 16.1 mg/dL (9.0-27.0); Calcium 8.9 mg/dL (8.7-10.3); Carbon Dioxide 23.1 mmol/L (21.6-31.8); Chloride 104 mmol/L (96-109); Globulin 2.5 g/dL (1.6-3.3); Glucose 88 mg/dL (70-110); Potassium 3.9 mmol/L (3.5-5.5); Sodium 137 mmol/L (135-145); Total Bilirubin 0.4 mg/dL (0.3-1.2)
[2024-04-27 08:37] LABS: Basophils # (A) 0.03 X 10*3/uL (0.00-0.10); Basophils % (A) 0.5 %; Eosinophils # (A) 0.25 X 10*3/uL (0.04-0.35); Eosinophils % (A) 3.8 %; HCT 33.7 % (39.6-50.0); HGB 11.5 g/dL (13.0-17.0); Lymphocytes # (A) 1.46 X 10*3/uL (0.90-5.00); MCH 28.8 pg (27.0-32.0); MCHC 34.1 g/dL (32.0-37.0); MCV 84.3 FL (80.0-97.0); Mean Platelet Volume 9.8 FL (9.5-12.2); Monocytes % (A) 10.5 %; NRBC Per 100 WBC 0 X 10*3/uL (0.00-0.01); Platelet Count 172 X 10*3/uL (140-440); RDW 13.2 % (11.5-14.5); WBC 6.65 X 10*3/uL (4.50-10.00)
--- NOTE | 2024-04-27 13:35 | P.PN ---
Subjective Progress Note Date: 04/27/24 I am following-up with patient and he is about the same. MRI Brain is concerning for brain mets. Objective - Vital Signs Vital signs: Vital Signs Temp 98.3 F 04/27/24 01:12 Pulse 71 04/27/24 01:12 Resp 16 04/27/24 01:12 BP 103/66 04/27/24 01:12 Pulse Ox 96 04/27/24 01:12 FiO2 Intake & Output 04/26/24 04/27/24 04/27/24 18:59 06:59 18:59 Intake Total 240 Balance 240 Weight 74.843 kg Intake: Oral 240 Other: Voiding Method Diaper Diaper # Voids 1 - Exam General: Lying in bed and does not appear in acute distress. Neuro: Very limited because of his cooperation. He is slightly drowsy but is awakeable to voice. Is oriented to self. He followed few simple commands and that is with a lot of prompting (closing eyes, attempting to smile and briefly lifted bilateral above gravity). No dysarthria. Motor: Unable to assess individual muscles. Briefly lifted uppers above gravity. Some of the workup during this hospital visit consisted of: I reviewed the lab workup. Creatinine is 1.36, sodium is 135, serum glucose is 2 8, calcium and magnesium as well as AST ALT are within the normal limits. CT of the head is reported as new left cerebellar hemisphere fluid attenuation region from 06/11/2023. Further evaluation with MRI recommended with IV contrast. Unclear if this represents a mass or vascular injury. I personally reviewed the CT and I agree there is no acute process. I do agree that the patient has questionable old vascular versus mass. There is no vasogenic edema noted. Routine EEG: Is abnormal. The background slowing is suggestive of moderate encephalopathy. Otherwise no focal slowing, epileptiform discharges or seizure on the EEG. MRi Brain: Cystic mass in left cerebellar hemisphere with posterior peripheral enhancement along the margins and is new from CT 05/2023 concerning for metastatic disease. No evidence of acute/subacute infarct. - Labs CBC & Chem 7: 04/27/24 04:10 04/27/24 04:10 Labs: Abnormal Lab Results - Last 24 Hours (Table) 04/27/24 04/27/24 Range/Units 04:10 04:10 RBC 4.00 L (4.40-5.60) X 10*6/uL Hgb 11.5 L (13.0-17.0) g/dL Hct 33.7 L (39.6-50.0) % Total Protein 6.0 L (6.2-8.2) g/dL Albumin 3.5 L (3.8-4.9) g/dL Albumin/Globulin Ratio 1.40 L (1.60-3.17) Ratio Assessment and Plan Assessment: This is a 63-year-old gentleman with history of progressive dementia over the last for 5 years who presented from his assisted living facility for a fall in the morning. Fact that he had a syncopal spell. CT of the head shows concern for a vascular insult over the left cerebellar that seems old versus mass Falls with possible syncopal spell: Likely due to brain mets. On MRI Cystic mass in left cerebellar hemisphere with posterior peripheral enhancement along the margins and is new from CT 05/2023 concerning for metastatic disease. EEG is negative for active seizure or discharges. New left cerebellar compared to the 05/2023 imaging rule out mass versus an old insult Underlying history of dementia that is progressive over the last for 5 years Plan: I started the patient on Vimpat 50mg bid IV as seizure prophylaxis especially with large brain mets that increases risk for seizures. Oncology is consulted. Will defer the rest of the medical management the primary other specialist The plan is discussed with patient's nurse. Will follow-up with patient sporadically. Dr. Taylor will resume neurology service tomorrow A.M. then Dr. Hughes this Tuesday A.M. Time with Patient: Less than 30
[2024-04-27] MEDS ORDERED: DEXAMETHASONE SOD PHOSPHATE 4 MG/ML 1 ML VIAL IVP PRN (14:23)
[2024-04-27] MEDS ORDERED: IOPAMIDOL CONTRAST (ORAL USE) VIAL PO PRN (14:32)
--- NOTE | 2024-04-27 14:32 | P.PN ---
Subjective Progress Note Date: 04/27/24 63-year-old male was sent in here because of a syncopal episode patient lives in assisted living. Patient is found to have elevated serum creatinine 1.36 mild hyponatremia leukocytosis and low blood pressure patient does not take any medications at home patient appears to have dementia of Alzheimer's type and baseline is alert oriented x 2-3 patient does not answer any questions appropriately apparently patient was started on new medications for combativeness which they believe is contributing to her current current symptoms. Patient had a CT of the head which showed hypoattenuation in the cerebellar area concerning for fluid or mass because of which neurology was consulted and patient is undergoing brain MRI for that. 04/27/2024 Patient is evaluated in follow-up in the medical floor he has been alert and oriented with no acute complaints. Patient was restless overnight. Brain MRI comes back with concern for a cystic mass of the left cerebellar hemisphere new from 2023 findings with concern for metastasis. Patient's chest x-ray came back revealing possible new hilar masses and and/or adenopathy and medial right lower lung mass. EEG reveals no epileptiform or seizure-like activity. Review of Systems Constitutional: Denied any fatigue denied any fever. Cardio vascular: denied any chest pain, palpitations Gastrointestinal: denied any nausea, vomiting, diarrhea Pulmonary: Denied any shortness of breath cough Neurologic denied any new focal deficits All inpatient medications were reviewed and appropriate changes in these medications as dictated in the interval history and assessment and plan. PHYSICAL EXAMINATION: GENERAL: The patient is alert and oriented x2, not in any acute distress. Well developed, well nourished. HEENT: Pupils are round and equally reacting to light. EOMI. No scleral icterus. No conjunctival pallor. Normocephalic, atraumatic. No pharyngeal erythema. No thyromegaly. CARDIOVASCULAR: S1 and S2 present. No murmurs, rubs, or gallops. PULMONARY: Chest is clear to auscultation, no wheezing or crackles. ABDOMEN: Soft, nontender, nondistended, normoactive bowel sounds. No palpable organomegaly. MUSCULOSKELETAL: No joint swelling or deformity. EXTREMITIES: No cyanosis, clubbing, or pedal edema. NEUROLOGICAL: Gross neurological examination did not reveal any focal deficits. Significant memory deficits SKIN: No rashes. Assessment and plan -Syncope probably secondary to dehydration from poor p.o. intake patient was started on IV fluids which we will continue will obtain orthostatic vitals. Will also obtain echocardiogram to rule out any aortic stenosis -Elevated blood sugars random and repeat blood sugar is normal hemoglobin 5.4 -Leukocytosis reactive in nature -Hypoattenuation in the cerebellar area on brain CT, brain MRI reveals cystic mass of the left cerebellar hemisphere concern for metastatic disease -New hilar masses abnormal adenopathy in medial right lower lung mass -Dementia possibly dementia of Alzheimer's type expected to have some agitation episodes will use Seroquel for that avoid benzodiazepines, barbiturates, anticholinergic medications, opiates. DVT prophylaxis: Subcutaneous heparin Plan Discussed plan of care with oncology and neurology Radiation oncology was consulted and patient has been started on Decadron Family is considering hospice care for this patient and will follow-up tomorrow with social work for coordination Continue Seroquel as needed for agitation The impression and plan of care has been dictated by Kia Anderson, Nurse Practitioner as directed. Dr. Adeline MD I have performed a history and physical examination and medical decision making of this patient, discussed the same with the dictator, and agree with the dictators assessment and plan as written, documented as a scribe. Based on total visit time, I have performed more than 50% of this visit. Objective - Vital Signs Vital signs: Vital Signs Temp 98.3 F 04/27/24 12:02 Pulse 79 04/27/24 12:02 Resp 17 04/27/24 12:02 BP 136/81 04/27/24 12:02 Pulse Ox 97 04/27/24 12:02 FiO2 Intake & Output 04/26/24 04/27/24 04/27/24 18:59 06:59 18:59 Intake Total 240 Balance 240 Weight 74.843 kg Intake: Oral 240 Other: Voiding Method Diaper Diaper # Voids 1 - Labs CBC & Chem 7: 04/27/24 04:10 04/27/24 04:10 Labs: Abnormal Lab Results - Last 24 Hours (Table) 04/27/24 04/27/24 Range/Units 04:10 04:10 RBC 4.00 L (4.40-5.60) X 10*6/uL Hgb 11.5 L (13.0-17.0) g/dL Hct 33.7 L (39.6-50.0) % Total Protein 6.0 L (6.2-8.2) g/dL Albumin 3.5 L (3.8-4.9) g/dL Albumin/Globulin Ratio 1.40 L (1.60-3.17) Ratio Assessment and Plan Time with Patient: Less than 30
[2024-04-27] MEDS: DEXAMETHASONE SOD PHOSPHATE 4 MG/ML 1 ML VIAL IVP SCH (15:13)
--- NOTE | 2024-04-27 16:17 | P.PN ---
Subjective Progress Note Date: 04/27/24 Principal diagnosis: syncope The patient is a 63-year-old male living in a residential care facility secondary to advanced dementia. He presents secondary to a syncopal episode. The patient presented to the ER on 04/26/2024. His chest x-ray was concerning for new possible bilateral hilar masses with medial right lower lobe mass. A CT was recommended for correlation. A CT of the head revealed a new cystic lesion in the left cerebellum compared to a CT one year ago. A subsequent MRI of the brain was performed also on April 26. A cystic lesion measuring 2.4 x 2.1 x 2.9 cm with vasogenic edema was demonstrated in the left cerebellum. This was felt worrisome for metastatic disease. There is no evidence of infarct. At the time of my consultation, the patient is alert. He is able to respond with some one-word replies. He denies headaches or nausea. He reports no significant cough, dyspnea or chest pain. Objective - Vital Signs Vital signs: Vital Signs Temp 98.3 F 04/27/24 12:02 Pulse 79 04/27/24 12:02 Resp 17 04/27/24 12:02 BP 136/81 04/27/24 12:02 Pulse Ox 97 04/27/24 12:02 FiO2 Intake & Output 04/26/24 04/27/24 04/27/24 18:59 06:59 18:59 Intake Total 240 Balance 240 Weight 74.843 kg Intake: Oral 240 Other: Voiding Method Diaper Diaper # Voids 1 - Constitutional General appearance: Present: no acute distress - EENT Eyes: Present: EOMI, PERRLA ENT: Present: hearing grossly normal - Neck Neck: Absent: lymphadenopathy - Respiratory Respiratory: bilateral: CTA - Cardiovascular Rhythm: regular - Gastrointestinal General gastrointestinal: Absent: tenderness - Integumentary Integumentary: Present: pale - Neurologic Neurologic: Present: CNII-XII intact. Absent: focal deficits (Moves all 4 extremities, limited exam due to mentation) - Psychiatric Psychiatric: Absent: A&O x's 3 (Unable to answer any questions), intact judgment & insight - Labs CBC & Chem 7: 04/27/24 04:10 04/27/24 04:10 Labs: Abnormal Lab Results - Last 24 Hours (Table) 03/14/25 03/14/25 Range/Units 04:10 04:10 RBC 4.00 L (4.40-5.60) X 10*6/uL Hgb 11.5 L (13.0-17.0) g/dL Hct 33.7 L (39.6-50.0) % Total Protein 6.0 L (6.2-8.2) g/dL Albumin 3.5 L (3.8-4.9) g/dL Albumin/Globulin Ratio 1.40 L (1.60-3.17) Ratio Assessment and Plan Assessment: The patient is a 63-year-old male living in a residential care facility secondary to advanced dementia. He presents secondary to a syncopal episode. MRI of the brain reveals a suspicious left cerebellar lesion. A chest x-ray reveals possible hilar adenopathy with a right lower lobe lesion. 1. Syncope: This could be secondary to the patient's lesion involving the left cerebellum. His clinical picture is suspicious for metastatic disease. Ho wever, the patient's family has canceled a CT of the chest, abdomen and pelvis which would provide important information regarding possible source of primary disease. The patient himself is unable to answer most questions secondary to advanced dementia. If the patient's family does not wish to have further workup, then I believe that hospice care would be appropriate. Considering the patient at baseline has advanced dementia and requires full care at a nursing facility, I am skeptical he would tolerate treatment for a possible newly diagnosed malignancy.
[2024-04-27] MEDS: LORazepam 1 MG/0.5 ML VIAL IV PRN (16:36)
[2024-04-27] MEDS: Lacosamide IV (ages 17+ yrs) 200 MG/20 ML ML IVP SCH (20:23)
--- NOTE | 2024-04-28 09:24 | P.CONS ---
History of Present Illness - Reason for Consult Consult date: 04/27/24 brain mets Requesting physician: Kia Anderson - Chief Complaint syncope - History of Present Illness Patient is a 63-year-old male with a significant history of advanced dementia. Consult was placed due to brain mets noted on brain MRI. Patient presented to the emergency room for syncope. He was also reported to have increasing aggressiveness at his facility. Per brother at bedside patient had history of basal cell carcinoma approximately 4 years ago and underwent Mohs durgery. Denies history of smoking or EtOH abuse. Upon admission chest x-ray showing po ssible new hilar masses and/or adenopathy in medial right lower lung mass. CT brain showing new left cerebellar hemisphere fluid attenuating region measuring 2.6 x 2.4 x 2.6 cm with some vasogenic edema. MRI brain was subsequently obtained showing cystic mass in the left cerebellar hemisphere measuring 2.4 x 2.1 x 2.9 cm with surrounding vasogenic edema with some posterior enhancement, measuring at least 5 mm x 22 mm. No evidence of acute or subacute infarct Review of Systems 10 point ROS is negative except as stated in the HPI Past Medical History Past Medical History: Cancer, Dementia, Hypertension Additional Past Medical History / Comment(s): Skin cancer treated about 3 years ago with [facility] History of Any Multi-Drug Resistant Organisms: None Reported Past Surgical History: No Surgical Hx Reported Past Anesthesia/Blood Transfusion Reactions: No Reported Reaction Smoking Status: Never smoker Past Alcohol Use History: None Reported Past Drug Use History: None Reported Medications and Allergies Home Medications Medication Instructions Recorded Confirmed Type Sertraline HCl [Zoloft] 50 mg PO [id number]/26/24 04/26/24 History Allergies Allergy/AdvReac Type Severity Reaction Status Date / Time No Known Allergies Allergy Verified 04/26/24 13:06 Physical Exam Vitals: Vital Signs Temp Pulse Pulse Resp BP BP Pulse Ox 04/27/24 12:02 98.3 F 79 17 136/81 97 04/27/24 01:12 98.3 F 71 16 103/66 96 04/26/24 20:00 97.8 F 82 16 125/82 98 04/26/24 16:45 73 18 128/90 100 Intake and Output 04/26/24 04/27/24 04/27/24 22:59 06:59 14:59 Intake Total 240 Balance 240 Intake: Oral 240 Other: Voiding Method Diaper Diaper # Voids 1 Weight 74.843 kg - Constitutional General appearance: average body habitus, no acute distress - EENT Eyes: anicteric sclerae, EOMI ENT: hearing grossly normal - Respiratory Respiratory: bilateral: CTA - Cardiovascular Rhythm: regular - Gastrointestinal General gastrointestinal: soft, no tenderness - Integumentary Integumentary: no cyanotic, no jaundiced - Neurologic confused speech, able to answer some questions with 1 word answers - Musculoskeletal Musculoskeletal: strength equal bilaterally Results CBC & Chem 7: 04/27/24 04:10 04/27/24 04:10 Labs: Abnormal Lab Results - Last 24 Hours (Table) 04/27/24 04/27/24 Range/Units 04:10 04:10 RBC 4.00 L (4.40-5.60) X 10*6/uL Hgb 11.5 L (13.0-17.0) g/dL Hct 33.7 L (39.6-50.0) % Total Protein 6.0 L (6.2-8.2) g/dL Albumin 3.5 L (3.8-4.9) g/dL Albumin/Globulin Ratio 1.40 L (1.60-3.17) Ratio Chest x-ray: report reviewed CT Scan - head: report reviewed MRI - head: report reviewed Assessment and Plan (1) Alzheimer dementia Current Visit: Yes Status: Acute Code(s): G30.9 - ALZHEIMER'S DISEASE, UNSPECIFIED; F02.80 - DEM IN OTH DIS CLASSD ELSWHR,UNSP SEV,W/O BEH/PSYCH/MOOD/ANX SNOMED Code(s): 33873266 (2) Brain mass Current Visit: Yes Status: Acute Code(s): G93.89 - OTHER SPECIFIED DISORDERS OF BRAIN SNOMED Code(s): 665072731 (3) Syncope Current Visit: Yes Status: Acute Code(s): R55 - SYNCOPE AND COLLAPSE SNOMED Code(s): 454329449 Plan: Syncope, Brain mass: Presented to the emergency room for syncope. He was also reported to have increasing aggressiveness at his facility. Per brother at bedside patient had history of basal cell carcinoma approximately 4 years ago and underwent Mohs durgery. -Chest x-ray showing possible new hilar masses and/or adenopathy and medial r ight lower lung mass. -CT brain showing new left cerebellar hemisphere fluid attenuating region me asuring 2.6 x 2.4 x 2.6 cm with some vasogenic edema. MRI brain was subsequently obtained showing cystic mass in the left cerebellar hemisphere measuring 2.4 x 2.1 x 2.9 cm with surrounding vasogenic edema with some posterior enhancement, measuring at least 5 mm x 22 mm. No evidence of acute or subacute infarct -Decadron 4mg q6 started -Rad onc consulted. Discussed case with Dr. Balderrama -Plan was to obtain CT CAP to evaluate for primary malignancy site. However, after today's visit, I spoke with admitting team, and patients brother who is DPOA, does not want to proceed with further workup at this time, and wants to proceed with comfort care measures. Hospice has been consulted We will remain available if family has any further questions or concerns Doctor attests: I performed a history and physical examination of this patient, developed impression and plan of care. Discussed with dictator. I agree with dictators note, documented as a scribe.
--- NOTE | 2024-04-28 13:16 | P.PN ---
Subjective Progress Note Date: 04/28/24 63-year-old male was sent in here because of a syncopal episode patient lives in assisted living. Patient is found to have elevated serum creatinine 1.36 mild hyponatremia leukocytosis and low blood pressure patient does not take any medications at home patient appears to have dementia of Alzheimer's type and baseline is alert oriented x 2-3 patient does not answer any questions appropriately apparently patient was started on new medications for combativeness which they believe is contributing to her current current symptoms. Patient had a CT of the head which showed hypoattenuation in the cerebellar area concerning for fluid or mass because of which neurology was consulted and patient is undergoing brain MRI for that. 04/27/2024 Patient is evaluated in follow-up in the medical floor he has been alert and oriented with no acute complaints. Patient was restless overnight. Brain MRI comes back with concern for a cystic mass of the left cerebellar hemisphere new from 2023 findings with concern for metastasis. Patient's chest x-ray came back revealing possible new hilar masses and and/or adenopathy and medial right lower lung mass. EEG reveals no epileptiform or seizure-like activity. 04/28/2024 Patient evaluated in follow-up in the medical floor. Awake alert and oriented x 2 although having moments of confusion and restlessness. Patient's 2 brothers Cornelio and Refugio were at the bedside today and a follow-up discussion was had regarding discharge planning and plan of care. They would like hospice on discharge and did discuss the possibility of returning to [facility] with hospice versus other options. Family like to get more information and [facility] hospice was consulted. Family is also open to returning to the [facility] with hospice pending other options. This will need to be followed up with social work on Tuesday. For the meantime we will continue with the Vimpat and the IV Decadron as this appears to be improving patient's symptoms. Family does not want any other further testing or workup for the likely metastatic lung cancer. Review of Systems Constitutional: Denied any fatigue denied any fever. Cardio vascular: denied any chest pain, palpitations Gastrointestinal: denied any nausea, vomiting, diarrhea Pulmonary: Denied any shortness of breath cough Neurologic denied any new focal deficits All inpatient medications were reviewed and appropriate changes in these medications as dictated in the interval history and assessment and plan. PHYSICAL EXAMINATION: GENERAL: The patient is alert and oriented x2, not in any acute distress. Well developed, well nourished. HEENT: Pupils are round and equally reacting to light. EOMI. No scleral icterus. No conjunctival pallor. Normocephalic, atraumatic. No pharyngeal erythema. No thyromegaly. CARDIOVASCULAR: S1 and S2 present. No murmurs, rubs, or gallops. PULMONARY: Chest is clear to auscultation, no wheezing or crackles. ABDOMEN: Soft, nontender, nondistended, normoactive bowel sounds. No palpable organomegaly. MUSCULOSKELETAL: No joint swelling or deformity. EXTREMITIES: No cyanosis, clubbing, or pedal edema. NEUROLOGICAL: Gross neurological examination did not reveal any focal deficits. Significant memory deficits SKIN: No rashes. Assessment and plan -Syncope probably secondary to dehydration from poor oral intake family does not want any further workup -Elevated blood sugars random and repeat blood sugar is normal hemoglobin 5.4 -Leukocytosis reactive in nature -Hypoattenuation in the cerebellar area on brain CT, brain MRI reveals cystic mass of the left cerebellar hemisphere concern for metastatic disease -New hilar masses abnormal adenopathy in medial right lower lung mass -Dementia possibly dementia of Alzheimer's type expected to have some agitation episodes will use Seroquel for that avoid benzodiazepines, barbiturates, anticholinergic medications, opiates. DVT prophylaxis: Subcutaneous heparin Plan Discussed plan of care with oncology and neurology Radiation oncology was consulted and patient has been started on Decadron Continue Seroquel as needed for agitation Question at the bedside with patient's son Cornelio today and he is agreeable to either return to [facility] with hospice versus placement with hospice versus [facility] house and did discuss the options for each and\ family will follow-up with social work on Tuesday. [facility] hospice was consulted. The impression and plan of care has been dictated by Kia Anderson Nurse Practitioner as directed. Dr. Adeline MD I have performed a history and physical examination and medical decision making of this patient, discussed the same with the dictator, and agree with the dictators assessment and plan as written, documented as a scribe. Based on total visit time, I have performed more than 50% of this visit. Objective - Vital Signs Vital signs: Vital Signs Temp 98.1 F 04/28/24 12:16 Pulse 102 H 04/28/24 12:16 Resp 16 04/28/24 12:16 BP 134/71 04/28/24 12:16 Pulse Ox 94 L 04/28/24 12:16 FiO2 Intake & Output 04/27/24 04/28/24 04/28/24 18:59 06:59 18:59 Intake Total 762 240 Balance 762 240 Intake: Oral 762 240 Other: Voiding Method Diaper Diaper Diaper # Voids 4 1 # Bowel Movements 0 - Labs CBC & Chem 7: 04/27/24 04:10 04/27/24 04:10 Assessment and Plan Time with Patient: Less than 30
--- NOTE | 2024-04-29 13:09 | P.PN ---
Subjective Progress Note Date: 04/29/24 63-year-old male was sent in here because of a syncopal episode patient lives in assisted living. Patient is found to have elevated serum creatinine 1.36 mild hyponatremia leukocytosis and low blood pressure patient does not take any medications at home patient appears to have dementia of Alzheimer's type and baseline is alert oriented x 2-3 patient does not answer any questions appropriately apparently patient was started on new medications for combativeness which they believe is contributing to her current current symptoms. Patient had a CT of the head which showed hypoattenuation in the cerebellar area concerning for fluid or mass because of which neurology was consulted and patient is undergoing brain MRI for that. 04/27/2024 Patient is evaluated in follow-up in the medical floor he has been alert and oriented with no acute complaints. Patient was restless overnight. Brain MRI comes back with concern for a cystic mass of the left cerebellar hemisphere new from 2023 findings with concern for metastasis. Patient's chest x-ray came back revealing possible new hilar masses and and/or adenopathy and medial right lower lung mass. EEG reveals no epileptiform or seizure-like activity. 04/28/2024 Patient evaluated in follow-up in the medical floor. Awake alert and oriented x 2 although having moments of confusion and restlessness. Patient's 2 brothers Cornelio and Refugio were at the bedside today and a follow-up discussion was had regarding discharge planning and plan of care. They would like hospice on discharge and did discuss the possibility of returning to [facility] with hospice versus other options. Family like to get more information and [facility] was consulted. Family is also open to returning to the [facility] with hospice pending other options. This will need to be followed up with social work on Tuesday. For the meantime we will continue with the Vimpat and the IV Decadron as this appears to be improving patient's symptoms. Family does not want any other further testing or workup for the likely metastatic lung cancer. 04/29/2024 Patient evaluated today resting in bed comfortably with a process safety manager at the bedside. He has no acute complaints at this time. After discussion yesterday with Cornelio and Refugio they are agreeable with hospice on discharge and the plan will likely be return to the [facility] with hospice versus other choices such as the [facility]. [facility] was consulted for informational session with the family however yesterday was Tuesday and did not meet with family today. This will be followed up on Tuesday by the home health care social worker for discharge planning. They do not wish for any aggressive measures or testing related to the patient's brain mass and possible lung lesion. Review of Systems Constitutional: Denied any fatigue denied any fever. Cardio vascular: denied any chest pain, palpitations Gastrointestinal: denied any nausea, vomiting, diarrhea Pulmonary: Denied any shortness of breath cough Neurologic denied any new focal deficits All inpatient medications were reviewed and appropriate changes in these medications as dictated in the interval history and assessment and plan. PHYSICAL EXAMINATION: GENERAL: The patient is alert and oriented x2, not in any acute distress. Well developed, well nourished. HEENT: Pupils are round and equally reacting to light. EOMI. No scleral icterus. No conjunctival pallor. Normocephalic, atraumatic. No pharyngeal erythema. No thyromegaly. CARDIOVASCULAR: S1 and S2 present. No murmurs, rubs, or gallops. PULMONARY: Chest is clear to auscultation, no wheezing or crackles. ABDOMEN: Soft, nontender, nondistended, normoactive bowel sounds. No palpable organomegaly. MUSCULOSKELETAL: No joint swelling or deformity. EXTREMITIES: No cyanosis, clubbing, or pedal edema. NEUROLOGICAL: Gross neurological examination did not reveal any focal deficits. Significant memory deficits SKIN: No rashes. Assessment and plan -Syncope probably secondary to dehydration from poor oral intake family does not want any further workup -Elevated blood sugars random and repeat blood sugar is normal hemoglobin 5.4 -Leukocytosis reactive in nature -Hypoattenuation in the cerebellar area on brain CT, brain MRI reveals cystic mass of the left cerebellar hemisphere concern for metastatic disease -New hilar masses abnormal adenopathy in medial right lower lung mass -Dementia possibly dementia of Alzheimer's type expected to have some agitation episodes will use Seroquel for that avoid benzodiazepines, barbiturates, anticholinergic medications, opiates. DVT prophylaxis: Subcutaneous heparin Plan Discussed plan of care with oncology and neurology Radiation oncology was consulted and patient has been started on Decadron Continue Seroquel as needed for agitation Patient continues on vimpat BID Met with the patients son Cornelio yesterday and he is agreeable to either return to [facility] with hospice versus placement with hospice versus [facility] and did discuss the options for each and\ family will follow-up with social work on Tuesday. [facility] hospice was consulted. The impression and plan of care has been dictated by Kia Anderson, Nurse Practitioner as directed. Dr. Adeline MD I have performed a history and physical examination and medical decision making of this patient, discussed the same with the dictator, and agree with the dictators assessment and plan as written, documented as a scribe. Based on total visit time, I have performed more than 50% of this visit. Objective - Vital Signs Vital signs: Vital Signs Temp 98.1 F 04/29/24 07:00 Pulse 81 04/29/24 07:00 Resp 17 04/29/24 07:00 BP 114/78 04/29/24 07:00 Pulse Ox 91 L 04/29/24 07:00 FiO2 Intake & Output 04/28/24 04/29/24 04/29/24 18:59 06:59 18:59 Intake Total 2400 540 240 Balance 2400 540 240 Intake: Oral 2400 540 240 Other: Voiding Method Diaper Diaper # Voids 5 4 1 - Labs CBC & Chem 7: 04/27/24 04:10 04/27/24 04:10 Assessment and Plan Time with Patient: Less than 30
--- NOTE | 2024-04-30 13:04 | P.PN ---
Progress Note - Text Progress Note Date: 04/30/24 Came to see patient. Per nurse report, patient is hospice, going to the [facility] later today. We will sign off.
[2024-04-30 14:44] VITALS: BP 159/92; PULSE 86; RESP 19; TEMP 97.1
--- NOTE | 2024-05-01 11:05 | P.DS ---
Providers Date of admission: 04/26/24 11:24 Expected date of discharge: 04/30/24 Attending physician: Vidal Tam MD Consults: 04/26/24 11:12 Consult Physician Routine Consulting Provider: Silverio Bernal Consult Reason/Comments: brain mass? Do you want consulting provider notified?: Yes 04/27/24 06:46 Consult Physician Routine Consulting Provider: Larry Mcgill Consult Reason/Comments: brain mets Do you want consulting provider notified?: Yes 04/27/24 14:23 Consult Physician Routine Consulting Provider: Beck Balderrama Consult Reason/Comments: brain mass Do you want consulting provider notified?: Yes Primary care physician: [facility] Course: Final diagnosis -Syncope secondary to dehydration from poor oral intake family does not want any further workup -Elevated blood sugars, random and repeat blood sugar is normal hemoglobin 5.4 -Leukocytosis reactive in nature -Hypoattenuation in the cerebellar area on brain CT, brain MRI reveals cystic mass of the left cerebellar hemisphere concern for metastatic disease -New hilar masses abnormal adenopathy in medial right lower lung mass -Dementia possibly dementia of Alzheimer's type -GI prophylaxis -DVT prophylaxis -No code Discharge disposition Patient is being discharged in a stable condition with guarded prognosis to home with hospice . Patient will be going home with [facility] hospice services. Total time taken is greater than 35 minutes. Hospital course This is a 63-year-old male who was recently admitted with syncope with poor oral intake being evaluated by neurology. Patient underwent CT of the brain count noted to have hypoattenuation 24 and underwent MRI of the brain revealing a cystic mass of the left cerebellar hemisphere concerns for metastatic disease. Family did not want any further extreme measures and has met with [facility] hospice and will be going home with hospice. Please refer to other consultation notes for further HPI. Currently no reports of chest pain, shortness of breath, or palpitations. Patient is afebrile. No reports of nausea or vomiting and patient is tolerating diet. Patient will be going home with [facility] hospice services. Overall poor and guarded prognosis. Physical exam: Gen: This is a 63-year-old male who is awake, alert and oriented x 1, baseline, agitated, anxious, well-developed, thin build, elderly appearing HEENT: Head is atraumatic, normocephalic. Pupils equal, round. Sclerae is anicteric. NECK: Supple. No JVD. No lymphadenopathy. No thyromegaly. LUNGS: Clear to auscultation. No wheezes or rhonchi. No intercostal retractio ns. HEART: Regular rate and rhythm. No murmur. ABDOMEN: Soft. Bowel sounds are present. No masses. No tenderness. EXTREMITIES: No pedal edema. No calf tenderness. NEUROLOGICAL: Patient is awake, alert and oriented x 1, baseline. Cranial nerves 2 through 12 are grossly intact. Please refer to medication reconciliation sheet for a list of medications. The impression and plan of care has been dictated by Jaye Ortiz, Nurse Practitioner as directed. Dr. Eber MD I have performed a history and examination and MDM of this patient, discussed the same with the dictator, and agree with the dictator's assessment and plan as written ,documented as a scribe. Based on total visit time, I have performed more than 50% of the visit. Patient Condition at Discharge: Stable Plan - Discharge Summary New Discharge Prescriptions: New Heparin Sodium,Porcine (1 ml) [Heparin Sodium] 5,000 unit SQ Q12HR each methylPREDNISolone Dose Pack [Medrol Dose Pack] 4 mg PO DIRECTED #1 packet QUEtiapine [SEROquel] 25 mg PO HS PRN tab PRN Reason: Agitation Acetaminophen Tab [Tylenol] 650 mg PO Q6HR PRN tab PRN Reason: Mild Pain Or Fever > 100.5 Lacosamide [Vimpat] 50 mg PO BID #60 tab Discontinued Sertraline HCl [Zoloft] 50 mg PO HS@1999 Discharge Medication List Acetaminophen Tab [Tylenol] 650 mg PO Q6HR PRN tab 04/30/24 [Rx] Heparin Sodium,Porcine (1 ml) [Heparin Sodium] 5,000 unit SQ Q12HR each 04/30/24 [Rx] Lacosamide [Vimpat] 50 mg PO BID #60 tab 04/30/24 [Rx] QUEtiapine [SEROquel] 25 mg PO HS PRN tab 04/30/24 [Rx] methylPREDNISolone Dose Pack [Medrol Dose Pack] 4 mg PO DIRECTED #1 packet 04/30/24 [Rx] Follow up Appointment(s)/Referral(s): Nonstaff,Physician [REFERRING] - 1-2 days Patient Instructions/Handouts: Seizure/Epilepsy Discharge Instructions & Follow-Up, Methylprednisolone (By mouth), Lacosamide (By mouth) Activity/Diet/Wound Care/Special Instructions: Patient is returning to [facility] and working with hospice at the facility activity as tolerated Follow-up with PCP on discharge Discharge Disposition: HOME WITH HOSPICE
== END 2024-04-30 16:55 | disposition hospice, home (50) ==
LOC: EC 09:39 → 5NMEDONC 11:24
PROVIDERS: ADMIT Internal Medicine; ATTEND Internal Medicine
DX: R55 Syncope and collapse (principal); E86.0 Dehydration; G93.9 Disorder of brain, unspecified; R73.9 Hyperglycemia, unspecified; E87.1 Hypo-osmolality and hyponatremia; D72.829 Elevated white blood cell count, unspecified; R59.9 Enlarged lymph nodes, unspecified; R91.8 Other nonspecific abnormal finding of lung field; G93.6 Cerebral edema; G30.9 Alzheimer's disease, unspecified; F02.811 Dementia in other diseases classified elsewhere, unspecified severity, with agitation; I10 Essential (primary) hypertension; W18.30XA Fall on same level, unspecified, initial encounter; Z85.828 Personal history of other malignant neoplasm of skin
CPT/HCPCS: 96376 ×4; 96372 ×4; 96374; 96375; 99285; 95816; 93005; 80053 ×2; 83735; 85025 ×2; 85610; 85730; 83036; 87636; 71046; 70450; 70553; G0378 ×5; J2060 ×3; J1644 ×4; J1100 ×4; C9254 ×4; A9585

== ENCOUNTER 2024-05-02 05:17 | Emergency (ER) | payer OTHER, MEDICARE ==
[2024-05-02] MEDS ORDERED: QUEtiapine 25 MG TAB PO STA (05:42)
--- NOTE | 2024-05-02 06:03 | ED ---
General Adult HPI - General Chief complaint: Neuro Symptoms/Deficit Stated complaint: Altered Mental Time Seen by Provider: 05/02/24 05:23 Source: EMS Mode of arrival: EMS Limitations: altered mental status (Underlying dementia) - History of Present Illness Initial comments: This patient is a 63-year-old man transferred from [facility] to have evaluat ion for altered mental status. Patient reportedly was agitated and disoriented and [facility] staff sent him to have evaluation. The patient's brother has arrived shortly after the patient and in speaking with the patient feels he is more or less at baseline. When I interviewed the patient himself, he denies any complaints. No pain. No dyspnea. No nausea or vomiting. The patient's brother is the medical decision maker and states that he feels that the patient may be discharged back to his care facility. Note that the patient had been admitted last week and had full neurology workup for concerns about possible seizure. No seizure activity noted tonight -: minutes(s) Severity scale (1-10): 0 Consistency: now resolved Improves with: none Worsens with: none Associated Symptoms: denies other symptoms Treatments Prior to Arrival: none - Related Data Previous Rx's Medication Instructions Recorded Acetaminophen Tab [Tylenol] 650 mg PO Q6HR PRN tab 04/30/24 Heparin Sodium,Porcine (1 ml) 5,000 unit SQ Q12HR each 04/30/24 [Heparin Sodium] Lacosamide [Vimpat] 50 mg PO BID #60 tab 04/30/24 QUEtiapine [SEROquel] 25 mg PO HS PRN tab 04/30/24 methylPREDNISolone Dose Pack 4 mg PO DIRECTED #1 packet 04/30/24 [Medrol Dose Pack] Allergies Allergy/AdvReac Type Severity Reaction Status Date / Time No Known Allergies Allergy Verified 05/02/24 05:25 Review of Systems ROS Statement: Those systems with pertinent positive or pertinent negative responses have been documented in the HPI. ROS Other: All systems not noted in ROS Statement are negative. Limitations: ROS unobtainable due to patients medical condition Respiratory: Denies: cough, dyspnea Cardiovascular: Denies: chest pain Gastrointestinal: Denies: abdominal pain, vomiting Musculoskeletal: Denies: back pain Neurological: Denies: headache Past Medical History Past Medical History: Cancer, Dementia, Hypertension Additional Past Medical History / Comment(s): Skin cancer treated about 3 years ago with [facility] History of Any Multi-Drug Resistant Organisms: None Reported Past Surgical History: No Surgical Hx Reported Past Anesthesia/Blood Transfusion Reactions: No Reported Reaction Past Psychological History: Unable to Obtain Smoking Status: Never smoker Past Alcohol Use History: None Reported Past Drug Use History: None Reported General Exam Limitations: no limitations General appearance: alert, in no apparent distress Head exam: Present: atraumatic, normocephalic Eye exam: Present: normal appearance, PERRL. Absent: scleral icterus, conjunctival injection ENT exam: Present: normal oropharynx Neck exam: Present: normal inspection, full ROM. Absent: tenderness, meningismus Respiratory exam: Present: normal lung sounds bilaterally. Absent: respiratory distress, wheezes, rales, rhonchi, stridor, accessory muscle use Cardiovascular Exam: Present: regular rate, normal rhythm, normal heart sounds. Absent: systolic murmur, diastolic murmur, rubs, gallop GI/Abdominal exam: Present: soft. Absent: tenderness, guarding, rebound Extremities exam: Present: normal inspection, normal capillary refill. Absent: pedal edema, calf tenderness Back exam: Present: normal inspection Neurological exam: Present: alert, CN II-XII intact. Absent: oriented X3 (Patient is oriented to person. Does not know the date, does not know his location.), motor sensory deficit Expanded Neurological exam: Present: protecting the airway Patient oriented to: Present: person. Absent: place, time Cranial nerves: EOM's Intact: Normal, Gag Reflex: Normal, Tongue Deviation: Normal Motor strength exam: RUE: 5, LUE: 5, RLE: 5, LLE: 5 Eye Response: (4) open spontaneously Motor Response: (6) obeys commands Verbal Response: (4) confused conversation Skin exam: Present: warm, dry, intact, normal color. Absent: rash Medical Decision Making - Medical Decision Making After discussion with patient's brother, the patient will be transferred back to long-term care facility as he does appear to be at baseline. Was pt. sent in by a medical professional or institution (, PA, MASS COMMUNICATIONS INSTRUCTOR, urgent care, hospital, or fpc...) When possible be specific @ -Patient sent from long-term care facility evaluation Did you speak to anyone other than the patient for history (EMS, parent, family, police, friend...)? What history was obtained from this source @ -[Much of the patient's recent history from the patient's brother Did you review nursing and triage notes (agree or disagree)? Why? @ -[I reviewed and agree with nursing and triage notes] Were old charts reviewed (outside hosp., previous admission, EMS record, old EKG, old radiological studies, urgent care reports/EKG's, [facility]pc records)? Report findings @ -[Yes, old charts were reviewed] Differential Diagnosis (chest pain, altered mental status, abdominal pain women, abdominal pain men, vaginal bleeding, weakness, fever, dyspnea, syncope, headache, dizziness, GI bleed, back pain, seizure, CVA, palpatations, mental health, musculoskeletal)? @ -[Differential Altered Mental Status: Hypoglycemia, DKA, hypercapnia, ETOH, overdose, CO poisoning, trauma, myxedema coma, HTN encephalopathy, infection, encephalitis, psychosis, intercranial hemorrhage, hepatic encephalopathy, meningitis, CVA, this is not meant to be an all-inclusive list EKG interpreted by me (3pts min.). @ -[As above] X-rays interpreted by me (1pt min.). @ -[None done] CT interpreted by me (1pt min.). @ -[None done] U/S interpreted by me (1pt. min.). @ -[None done] What testing was considered but not performed or refused? (CT, X-rays, U/S, labs)? Why? @ -[None] What meds were considered but not given or refused? Why? @ -[None] Did you discuss the management of the patient with other professionals (professionals i.e. , PA, MASS COMMUNICATIONS INSTRUCTOR, lab, RT, psych nurse, social work coordinator, communications department chair, teacher, grants officer, showcase trimmer)? Give summary @ -[No] Was smoking cessation discussed for >3mins.? @ -[No] Was critical care preformed (if so, how long)? @ -[No] Were there social determinants of health that impacted care today? How? (Homelessness, low income, unemployed, alcoholism, drug addiction, transportation, low edu. Level, literacy, decrease access to med. care, senior care, rehab)? @ -[No] Was there de-escalation of care discussed even if they declined (Discuss DNR or withdrawal of care, Hospice)? DNR status @ -[No] What co-morbidities impacted this encounter? (DM, HTN, Smoking, COPD, CAD, Cancer, CVA, ARF, Chemo, Hep., AIDS, mental health diagnosis, sleep apnea, morbid obesity)? @ -[Advanced dementia Was patient admitted / discharged? Hospital course, mention meds given and route, prescriptions, significant lab abnormalities, going to OR and other pertinent info. @ -[See above Undiagnosed new problem with uncertain prognosis? @ -[No] Drug Therapy requiring intensive monitoring for toxicity (Heparin, Nitro, Insulin, Cardizem)? @ -[No] Were any procedures done? @ -[No] Diagnosis/symptom? @ -[Advanced dementia Recent agitation Acute, or Chronic, or Acute on Chronic? @ -[Acute on chronic Uncomplicated (without systemic symptoms) or Complicated (systemic symptoms)? @ -[Uncomplicated Side effects of treatment? @ -[No] Exacerbation, Progression, or Severe Exacerbation? @ -[No] Poses a threat to life or bodily function? How? (Chest pain, [place], PR, pneumonia, PE, COPD, DKA, ARF, appy, cholecystitis, CVA, Diverticulitis, Homicidal, Suicidal, threat to staff... and all critical care pts) @ -[No] All treatments are based on ideal body weight as in ED triage Disposition Clinical Impression: Alzheimer dementia, Anxiety Disposition: HOME SELF-CARE Condition: Undetermined Instructions (If sedation given, give patient instructions): Dementia (ED) Is patient prescribed a controlled substance at d/c from ED?: No Referrals: Jose Wade MD [Primary Care Provider] - 1-2 days
== END 2024-05-02 06:48 | disposition home or self-care (01) ==
LOC: EC 05:17
DX: G30.9 Alzheimer's disease, unspecified (principal); F02.84 Dementia in other diseases classified elsewhere, unspecified severity, with anxiety
CPT/HCPCS: 99284